=== PATIENT | female | born 1995 | race Caucasian/White ===

== ENCOUNTER 2016-09-27 15:36 | Emergency (ER) | payer MEDICAID, OTHER ==
[~2016-09-27] VITALS: Ht 157.5 cm; Wt 79.0 kg
[~2016-09-27 15:36] MED LIST: ACET325T33 PO; CYCL-319 PO; HYDR-3498 PO; IBUP-1542 PO
[2016-09-27 15:38] VITALS: Ht 157.5 cm; Wt 79.0 kg
[2016-09-27] MEDS ORDERED: PRENAT PO (18:34)
--- NOTE | 2016-09-27 19:50 | ERD ---
ER Documentation Chief Complaint Date/Time DATE: 09/27/16 TIME: 19:46 Chief Complaint FACIAL RASH AFTER VOMITED X 2, 34 WEEKS HPI This is a 21-year-old female presenting to emergency department for facial rash and vomiting. Patient states earlier today she was eating a salad and soon after she started vomiting. Nonbloody, nonbilious emesis. Patient then states she developed pruritic rash to face. Denies wheezing, shortness of breath, difficulty breathing or chest pain. No diarrhea. Patient is currently 34 weeks with last menstrual period January 30, 2016. Patient states this is her first . Patient denies any vaginal bleeding however she states she has some pelvic cramping and pain. ROS All systems reviewed and are negative except as per history of present illness. Medications Home Meds Reported Medications Multivit/Min/Fol Ac/Iron/Pren* ( S*) 1 Tab Tab, 1 TAB PO DAILY, TAB 09/27/16 Discontinued Scripts Acetaminophen* (Tylenol*) 325 Mg Tablet, 2 TAB PO Q8 Y for PAIN AND/OR INFLAMMATION, #30 TAB Prov:RACHEL NEWBERRY MD 05/29/16 Hydrocodone Bit-Acetaminophen* ([place]*) 5-325 Mg Tab, 1 TAB PO Q6 Y for PAIN, # 20 TAB Prov:MAITE MENDOZA NP 01/14/16 Cyclobenzaprine Hcl* (Cyclobenzaprine Hcl*) 10 Mg Tablet, 10 MG PO TID, #15 TAB Prov:MAITE MENDOZA NP 01/14/16 Ibuprofen* (Motrin*) 600 Mg Tab, 600 MG PO Q6H Y for PAIN AND OR ELEVATED TEMP, #30 TAB Prov:MAITE MENDOZA NP 01/14/16 Allergies Allergies: Coded Allergies: No Known Allergy (Unverified , 09/27/16) PMhx/Soc Medical and Surgical Hx: pt denies Medical Hx History of Surgery: Yes (eye surgery) Anesthesia Reaction: No Hx Neurological Disorder: No Hx Respiratory Disorders: No Hx Cardiac Disorders: No Hx Psychiatric Problems: No Hx Alcohol Use: No Hx Substance Use: No Hx Tobacco Use: No Smoking Status: Never smoker Physical Exam Vitals Vital Signs Date Time Temp Pulse Resp B/P Pulse Ox O2 Delivery O2 Flow Rate FiO2 4/22/17 15:38 98.1 99 18 100/60 99 Physical Exam Const: Alert, [id number] Head: Atraumatic Eyes: Normal Conjunctiva ENT: Normal External Ears, Nose and Mouth. Neck: Full range of motion..~ No meningismus. Resp: Clear to auscultation bilaterally Cardio: Regular rate and rhythm, no murmurs Abd: Soft, non tender, non distended. Normal bowel sounds Skin: Erythematous patches to face and neck. No crusting or scaling. No vesicles. No abscess. Back: No midline or flank tenderness Ext: No cyanosis, or edema Neur: Awake and alert Psych: Normal Mood and Affect Procedures/MDM MDM: This is a 21-year-old female presenting to emergency department for facial rash and vomiting after eating today. Patient states she vomited twice nonbloody nonbilious emesis. Patient is currently 34 weeks with last menstrual period January 30, 2016. Patient does state that she has some pelvic pain and cramping at times. She states that she has had this for several weeks. No active vomiting on the ED. Patient was sent to labor and delivery for evaluation. Departure Diagnosis: Primary Impression: Rash Additional Impression: Weeks of gestation: 34 weeks Qualified Code: Z3A.34 - 34 weeks gestation of Condition: Stable FIDELINA JENKINS NP Sep 27, 2016 19:50
== END 2016-09-27 20:55 | disposition left against medical advice (07) ==
LOC: FTE 15:36
DX: O99.89 Other specified diseases and conditions complicating pregnancy, childbirth and the puerperium (principal); R21 Rash and other nonspecific skin eruption; Z3A.34 34 weeks gestation of pregnancy
CPT/HCPCS: 99282

== ENCOUNTER 2016-09-27 18:05 | Outpatient (CLI) | payer OTHER ==
[~2016-09-27] VITALS: Ht 157.5 cm; Wt 78.3 kg
[2016-09-27 18:28] VITALS: BP 101/62; PULSE 91; RESP 18; Ht 157.5 cm; Wt 78.3 kg
[2016-09-27] MEDS ORDERED: PRENAT PO (18:34)
--- NOTE | 2016-09-27 18:53 | PN ---
Date/Time of Note Date/Time of Note DATE: 09/27/16 TIME: 18:47 OB Subjective Subjective Subjective Patient is 1 para 0 at 34 weeks of gestation who presents with a facial rash which appeared shortly after one episode of vomiting, she reports no itching Patient reports no fever, no shortness of breath no chest pain, no abdominal pain, no diarrhea Patient reports a similar episode earlier in the with a facial rash which spontaneously cleared in a couple of days Patient does report a history of facial acne Patient has had no problems during her care OB Objective Objective Objective 34 weeks of gestation with a facial rash heart rate category 1 [place] none HEENT: WNL Heart: Rhythm Normal Lungs: Clear Abdomen: WNL Extremities: Normal Accelerations: Accelerations Present Decelerations: No Decelerations Varibility: Moderate Contractions on Admission: None OB Assessment/Plan Other Assessment: 34 weeks of gestation with facial rash Patient is afebrile and stable NST reactive Other plan: Patient is clear from the obstetrical standpoint We will send the patient back on to the ER for further evaluation of a facial rash Patient should follow-up with Dr. Payton in 2-3 days MIYA OMALLEY MD Sep 27, 2016 18:52
== END 2016-09-27 19:03 | disposition home or self-care (01) ==
LOC: OBT 18:05 → L-D 18:06 → OBT 19:03
PROVIDERS: ATTEND Obstetrics & Gynecology
DX: O32.3XX0 Maternal care for face, brow and chin presentation, not applicable or unspecified (principal); Z3A.34 34 weeks gestation of pregnancy
CPT/HCPCS: G0463

== ENCOUNTER 2016-10-28 21:13 | Outpatient (CLI) | payer OTHER ==
[~2016-10-28] VITALS: Ht 157.5 cm; Wt 79.3 kg
[~2016-10-28 21:13] MED LIST changes: -ACET325T33 PO; -CYCL-319 PO; -HYDR-3498 PO; -IBUP-1542 PO; +PRENAT PO
[2016-10-28 21:17] VITALS: Ht 157.5 cm; Wt 79.3 kg
[2016-10-28 21:37] VITALS: BP 108/63; PULSE 105; RESP 18
--- NOTE | 2016-10-29 00:12 | RADRPT ---
PROCEDURE: Obstetrical ultrasound greater than 14 weeks CLINICAL INDICATION: Active labor. Estimated weight TECHNIQUE: Real time sonographic imaging of the gravid uterus is performed transabdominally and mu ltiple static deleon scale and Doppler images are submitted for review as are measurements. The image s are reviewed on the PACS. COMPARISON: No relevant exams are available FINDINGS: There is a single living intrauterine gestation in cephalic presentation. The heart beat is estimated at 131 bpm. The measurements are as follows: BPD:9.43 cm HC:33.48 cm AC:34.25 cm FL:7.29 cm Estimated gestational age is 38 weeks. The estimated date of delivery is 11/11/2016. The estimated weight is 3372 grams. Placenta is posterior and grade2. There is no evidence of placenta previa or abruption. RPTAT:HJJR IMPRESSION: 1. Single viable intrauterine gestation in cephalic presentation estimated at 38 weeks with the shaw mated date of delivery 11/11/2016. 2. Estimated weight 3372 g (7 pounds 7 ounces). Physician Joey Date Time Electronically viewed and signed by Physician Joey on 10/29/2016 00:12 JR/
--- NOTE | 2016-10-29 00:14 | RADRPT ---
PROCEDURE: US OB. CLINICAL INDICATION: Active labor TECHNIQUE: Pelvic ultrasound performed for biophysical profile. COMPARISON: 10/28/2016 FINDINGS: Single intrauterine gestation present with heart rate at 143 beats per minute. Presentation is ceph alic. Placenta is posterior, grade II. Biophysical profile score is 8/8 (breathing=2, movement=2, tone =2, fluid volume=2). Amniotic fluid volume is within normal limits, with SHRUTHI = 15.47 cm. RPTAT:HJJR IMPRESSION: Biophysical profile score 8/8. Physician Joey Date Time Electronically viewed and signed by Physician Joey on 10/29/2016 00:13 JR/
--- NOTE | 2016-10-29 01:05 | QN ---
Documentation Comment OB TRIAGE NOTE 21 y/o JOHN 11/06/2016 with c/o pelvic pressure. Patient denies any leakage of fluid or vaginal bleeding. Afebrile VSS Abdomen soft NT NST Category I OB ultrasound normal Cervix Fingertip Stable D/C home Follow up in clinic on 10/30/2016. CLARISSE HENRIQUEZ MD October 29, 2016 01:04
--- NOTE | 2016-10-29 01:20 | TRIAGE ---
OB Triage Datetime Report Generated by CPN: 10/29/2016 01:20 Datetime: 10/29/2016 00:56 Labor Evaluation Frequency: 2-5 Monitor Mode: External Quality: Mild Pattern: Normal: <= 5 Contractions in 10 Minutes Resting Tone [place]: Relaxed Heart Rate FHR Baseline Rate: 115 Monitor Mode: External US Variability: Moderate 6-25 bpm Accelerations: 15X15 Decelerations: None Category: Category I Datetime: 10/29/2016 00:16 Labor Evaluation Frequency: 7-8 Monitor Mode: External Duration (sec)2399: 60-90 Quality: Mild Pattern: Normal: <= 5 Contractions in 10 Minutes Resting Tone [place]: Relaxed Heart Rate FHR Baseline Rate: 125 Monitor Mode: External US Variability: Moderate 6-25 bpm Accelerations: 15X15 Decelerations: None Category: Category I Datetime: 10/28/2016 23:16 Monitor Mode: External Quality: Mild Pattern: Normal: <= 5 Contractions in 10 Minutes Resting Tone [place]: Relaxed Heart Rate FHR Baseline Rate: 130 Monitor Mode: External US FHR Baseline Changes: No Baseline Change Variability: Moderate 6-25 bpm Accelerations: 15X15 Decelerations: None Datetime: 10/28/2016 22:34 Stage of : OB Triage Monitor Mode: External Quality: Mild Pattern: Normal: <= 5 Contractions in 10 Minutes Resting Tone [place]: Relaxed Heart Rate FHR Baseline Rate: 140 Monitor Mode: External US FHR Baseline Changes: No Baseline Change Variability: Moderate 6-25 bpm Accelerations: 15X15 Decelerations: None Category: Category I Datetime: 10/28/2016 22:25 Time of Arrival: 10/28/2016 21:11 EGA: 38.5 Arrived By: Wheelchair Arrived From: Home Chief Complaint: w/ c/o vag pain and pressure since 1530 and DFM today Movement: Decreased Contractions: Denies/Absent Rupture of Membranes: Denies Vaginal Bleeding: None Vaginal Discharge: Denies Recent Sexual Intercouse: Denies Abdominal Trauma: Not Applicable Patient Complaints: Other Time Provider Notified: 10/28/2016 21:16 Provider Notified: Dr Centeno Initial Plan: EFM Datetime: 10/28/2016 22:19 Vaginal Exam Dilatation (cms): 0.5 Effacement (%): 50 Station: -3 Cervix, Position: Posterior Datetime: 10/28/2016 21:24 Membrane Status: Intact Datetime: 10/28/2016 21:23 Maternal Assessment Level of Consciousness: Fully Conscious Headache: Denies Blurred Vision: No Respiratory Effort: Unlabored; Regular Rhythm; Equal Expansion Nausea/Vomiting: Denies RUQ Epigastric Pain: Denies Monitor Mode: External Monitor Mode: External US Comments: FHT 155 Datetime: 09/27/2016 18:32 Stage of : OB Triage Assessment Type: Admission Assessment Maternal Assessment Level of Consciousness: Fully Conscious DTR's/Clonus: DTRs 2+; No Clonus Headache: Denies Blurred Vision: No Respiratory Effort: Unlabored; Regular Rhythm; Equal Expansion Breath Sounds, Left: Clear and Equal Breath Sounds, Right: Clear and Equal Nausea/Vomiting: Denies RUQ Epigastric Pain: Denies Facial Edema: None Temperature Route: Axillary Fall Risk Assessment History of Falling: (0) No Secondary Diagnosis: (0) No Ambulatory Aid: (0) Bedrest/Nurse Assist IV Therapy: (0) No Gait: (0) Normal/Bedrest/Immobile Mental Status: (0) Oriented to Own Ability Fall Score: 0 Fall Risk Score Definition: No Risk: No action required Datetime: 09/27/2016 18:31 Time of Arrival: 09/27/2016 18:05 EGA: 34.2 Arrived By: Wheelchair Arrived From: Emergency Dept Chief Complaint: complaints of facial rash after eating and vomiting. blood spot in upper left eye . cleared in ER and sent to OB triage for evaluation. Movement: Present Contractions: Denies/Absent Rupture of Membranes: Denies Vaginal Bleeding: None Vaginal Discharge: Denies Recent Sexual Intercouse: Denies Abdominal Trauma: Not Applicable Patient Complaints: Other Time Provider Notified: 09/27/2016 18:40 Provider Notified: MD Savannah
== END 2016-10-29 01:06 | disposition home or self-care (01) ==
LOC: OBT 21:13 → L-D 21:14 → OBT 10-29 01:06
PROVIDERS: ATTEND Obstetrics & Gynecology
DX: O26.893 Other specified pregnancy related conditions, third trimester (principal); R10.2 Pelvic and perineal pain; Z3A.34 34 weeks gestation of pregnancy
CPT/HCPCS: 76815; 76818; Z7500; G0463

== ENCOUNTER 2016-11-04 13:41 | Outpatient (CLI) | payer OTHER ==
[~2016-11-04] VITALS: Ht 157.5 cm; Wt 79.9 kg
[2016-11-04 14:20] VITALS: Ht 157.5 cm; Wt 79.9 kg
[2016-11-04 14:21] VITALS: BP 95/62
--- NOTE | 2016-11-04 15:45 | RADRPT ---
PROCEDURE: US OB. CLINICAL INDICATION: Size and dates , labor pain TECHNIQUE: Multiple sonographic images of the pelvis and gravid uterus were obtained. The images were reviewed on a PACS workstation. COMPARISON: No prior studies are available for comparison. FINDINGS: There is a single viable intrauterine gestation. Cardiac activity is present with 139 beats per min [place]. There is a vertex presentation. The placenta is fundal left. There is no evidence for an abruption or placenta previa. There is a normal amount of amniotic fluid with an HSRUTHI = 14.6 cm. Measurements were made in order to determine age. The results are as follows: BPD =9.7 cm HC =33.3 cm AC =36.6 cm FL =7.6 cm Estimated gestational age of approximately 38 weeks and 5 days based on ultrasound measurements. Clinical age: 39 weeks and 6 days. The estimated date of delivery is 11/13/16, based on ultrasound measurements. The EFW = 3875 g, 73%, based on LMP age. RPTAT: AA IMPRESSION: Single viable intrauterine gestation of approximately 38 weeks and 5 days based on ultrasound measu rements. .Sergio Kowalski MD, MD Date Time Electronically viewed and signed by .Sergio Kowalski MD, on 11/04/2016 15:44 .S/
--- NOTE | 2016-11-04 15:47 | RADRPT ---
PROCEDURE: US OB biophysical profile. CLINICAL INDICATION: decreased movements, labor pain TECHNIQUE: Multiple sonographic images of the pelvis were obtained. The images were reviewed on a PACS workstation. COMPARISON: 10/28/16 FINDINGS: There is a single viable intrauterine gestation. Cardiac activity is present with 140 beats per min [place]. There is a vertex presentation. The placenta is fundal left. There is no evidence for an abruption or placenta previa. There is a normal amount of amniotic fluid with an SHRUTHI = 14.6 cm. Biophysical profile: movement 2/2 tone 2/2. breathing 2/2 SHRUTHI 2/2 Total 01/13 RPTAT: AA . IMPRESSION: Normal biophysical profile. . .Sergio Kowalski MD, Date Time Electronically viewed and signed by .Sergio Kowalski MD, on 11/04/2016 15:47 .S/
--- NOTE | 2016-11-04 18:06 | TRIAGE ---
OB Triage Datetime Report Generated by CPN: 11/04/2016 18:05 Datetime: 11/04/2016 16:58 Vaginal Exam Dilatation (cms): 1.0 Effacement (%): 70 Station: -2 Exam By: S. SHYANNE Datetime: 11/04/2016 16:15 Stage of : OB Triage Labor Evaluation Frequency: 1-6 Monitor Mode: External Duration (sec)2399: 30-60 Pattern: Normal: <= 5 Contractions in 10 Minutes Resting Tone [place]: Relaxed Heart Rate FHR Baseline Rate: 135 Monitor Mode: External US Variability: Moderate 6-25 bpm Accelerations: 15X15 Decelerations: None Category: Category I Pain Assessment Pain Scale: 5 Pain Presence: Intermittent Pain Type: Cramping; Contraction Pain Location: Abdomen Pain Relief Measures: Comfort Measures Datetime: 11/04/2016 15:25 Stage of : OB Triage Labor Evaluation Frequency: 1-5 Monitor Mode: External Duration (sec)2399: 30-60 Pattern: Normal: <= 5 Contractions in 10 Minutes Resting Tone [place]: Relaxed Heart Rate FHR Baseline Rate: 135 Monitor Mode: External US Variability: Moderate 6-25 bpm Accelerations: 15X15 Decelerations: None Category: Category I Datetime: 11/04/2016 14:28 Vaginal Exam Dilatation (cms): 1.0 Effacement (%): 70 Station: -2 Exam By: BonifacioKristofer KIMBLE Datetime: 11/04/2016 14:25 Stage of : OB Triage Assessment Type: Triage Maternal Assessment Level of Consciousness: Fully Conscious DTR's/Clonus: DTRs 2+; No Clonus Headache: Denies Blurred Vision: No Respiratory Effort: Unlabored; Regular Rhythm; Equal Expansion Breath Sounds, Left: Clear and Equal Breath Sounds, Right: Clear and Equal Nausea/Vomiting: Denies RUQ Epigastric Pain: Denies Lower Extremities Edema: None Degree: None Upper Extremities Edema: None Degree: None Facial Edema: None Temperature Route: Oral Fall Risk Assessment History of Falling: (0) No Secondary Diagnosis: (0) No Ambulatory Aid: (0) Bedrest/Nurse Assist IV Therapy: (0) No Gait: (0) Normal/Bedrest/Immobile Mental Status: (0) Oriented to Own Ability Fall Score: 0 Fall Risk Score Definition: No Risk: No action required Monitor Mode: External Heart Rate FHR Baseline Rate: 145 Monitor Mode: External US Variability: Moderate 6-25 bpm Accelerations: 15X15 Decelerations: None Category: Category I Pain Assessment Pain Scale: 0 Pain Presence: None/Denies Pain Type: N/A Datetime: 11/04/2016 14:23 Time of Arrival: 11/04/2016 13:37 EGA: 39.5 Arrived By: Ambulatory Arrived From: Home Chief Complaint: C/O LOST MUCUS PLUG Movement: Present Rupture of Membranes: Denies Vaginal Discharge: Denies Recent Sexual Intercouse: Denies Abdominal Trauma: Not Applicable Patient Complaints: Other Additional Patient Complaints: EFMX2,CALL MD Time Provider Notified: 11/04/2016 14:50 Provider Notified: DR. WILL Initial Plan: EVALUATE FOR 2 HOURS IF NOT CERVICAL CHANGE D/C- IF CERVICAL CHANGE ADMIT TO LABOR A ND DELIVERY, ORDERS FOR BPP/AFR, EFW RECIEVED Datetime: 10/28/2016 22:25 EGA: 38.5 Datetime: 09/27/2016 18:32 Fall Score: 0 Fall Risk Score Definition: No Risk: No action required Datetime: 09/27/2016 18:31 EGA: 34.2
--- NOTE | 2016-11-04 18:09 | QN ---
Documentation Comment 21 years old female 1 para 0 EDC November 06, 2016 at 39 weeks and 5 7 presented in triage unit with a complaint of labor contraction patient kept under observation for 2 hours with IV hydration there was no cervical changes heart rate category 1 patient discharged home with labor instructions recommended return to the hospital when contractions are stronger. JUMANA WILL MD November 04, 2016 18:09
== END 2016-11-04 18:03 | disposition home or self-care (01) ==
LOC: OBT 13:41 → L-D 13:42 → OBT 18:03
PROVIDERS: ATTEND Obstetrics & Gynecology
DX: O47.1 False labor at or after 37 completed weeks of gestation (principal); Z3A.39 39 weeks gestation of pregnancy
CPT/HCPCS: 76816; 76818; Z7500; G0463

== ENCOUNTER 2016-11-08 03:29 | Inpatient (IN) | payer OTHER ==
[~2016-11-08] VITALS: Ht 157.5 cm; Wt 81.2 kg
[2016-11-08 03:56] VITALS: BP 109/68; PULSE 92; RESP 18; Ht 157.5 cm; Wt 81.2 kg
[2016-11-08] MEDS ORDERED: OXYTOCIN 30 UNITS/LR 500 ML IV PRN (05:00)
[2016-11-08] MEDS ORDERED: METHYLERGONOVINE 0.2 MG INJ IM PRN (05:00)
[2016-11-08] MEDS ORDERED: IBUPROFEN 600 MG TAB PO PRN (05:00)
[2016-11-08] MEDS ORDERED: BUTORPHANOL 2 MG INJ IV PRN (05:00)
[2016-11-08] MEDS ORDERED: CARBOPROST 250 MCG INJ IM PRN (05:00)
[2016-11-08] MEDS ORDERED: MISOPROSTOL 200 MCG TAB PR PRN (05:00)
[2016-11-08] MEDS ORDERED: OXYTOCIN 30 UNITS/LR 500 ML IV SCH ×2 (05:00)
[2016-11-08] MEDS ORDERED: LIDOCAINE 1% (MPF) 30 ML INJ INJ PRN (05:00)
--- NOTE | 2016-11-08 05:03 | TRIAGE ---
OB Triage Datetime Report Generated by CPN: 11/08/2016 05:02 Datetime: 11/08/2016 04:30 Stage of : OB Triage Datetime: 11/08/2016 04:12 Stage of : OB Triage Labor Evaluation Frequency: 2-5 Monitor Mode: External Duration (sec)2399: 60-90 Quality: Moderate Pattern: Normal: <= 5 Contractions in 10 Minutes Resting Tone [place]: Relaxed Heart Rate FHR Baseline Rate: 130 Monitor Mode: External US FHR Baseline Changes: No Baseline Change Variability: Moderate 6-25 bpm Accelerations: 15X15 Decelerations: Variable Category: Category II Vaginal Exam Dilatation (cms): 2.0 Effacement (%): 80 Station: -2 Exam By: Denia Jamison Membrane Status: Bulging Amniotic Fluid Amount: None Vaginal Bleeding: Small Cervix, Consistency: Soft Cervix, Position: Posterior Presentation 'A': Cephalic Datetime: 11/08/2016 03:41 Monitor Mode: External Contraction Comments: [place] applied Heart Rate FHR Baseline Rate: 130 Monitor Mode: External US Comments: EFM applied Datetime: 11/08/2016 03:40 Time of Arrival: 11/08/2016 03:24 EGA: 40.2 Arrived By: Wheelchair Arrived From: Home Chief Complaint: Vaginal bleeding _ UCs since 0305 Movement: Present Contractions: Irregular Time Contractions Began: 11/08/2016 03:05 Rupture of Membranes: Denies Vaginal Bleeding: Moderate Vaginal Discharge: Present Abdominal Trauma: Not Applicable Patient Complaints: Contractions; Cramping; Back Pain Time Provider Notified: 11/08/2016 04:30 Provider Notified: Dr Davis Initial Plan: SVE, EFM Datetime: 11/04/2016 14:25 Fall Risk Assessment Fall Score: 0 Fall Risk Score Definition: No Risk: No action required Datetime: 11/04/2016 14:23 EGA: 39.5 Datetime: 10/28/2016 22:25 EGA: 38.5 Datetime: 09/27/2016 18:32 Fall Risk Assessment Fall Score: 0 Fall Risk Score Definition: No Risk: No action required Datetime: 09/27/2016 18:31 EGA: 34.2
[2016-11-08] MEDS: LACTATED RINGER'S 1,000 ML IV SCH ×3 (05:26→15:49)
[2016-11-08] MEDS ORDERED: LACTATED RINGER'S 1,000 ML IV PRN (06:00)
[2016-11-08 06:02] LABS: ADD SCAN DIFF NO
[2016-11-08 06:10] LABS: BASOPHILS % 0.3 % (0.0-2.0); EOSINOPHILS # 0.1 10^3/ul (0.0-0.5); EOSINOPHILS % 0.8 % (0.0-7.0); HEMATOCRIT 38.7 % (37.0-47.0); HEMOGLOBIN 12.8 g/dl (12.0-16.0); LYMPHOCYTES % 25.6 % (15.0-51.0); MEAN CORPUSCULAR HGB CONC 33.1 g/dl (32.0-37.0); MEAN CORPUSCULAR VOLUME 87.6 fl (82.0-101.0); MEAN PLATELET VOLUME 9.9 fl (7.4-10.4); MONOCYTE # 0.8 10^3/ul (0.3-0.9); MONOCYTES % 10.7 % (0.0-11.0); NEUTROPHIL # 4.9 10^3/ul (1.6-7.5); NEUTROPHILS % 62.2 % (39.0-77.0); PLATELET COUNT 304 10^3/UL (140-415); RED BLOOD COUNT 4.42 10^6/ul (4.20-5.40); RED CELL DISTRIBUTION WIDTH 13.1 % (11.5-14.5); WHITE BLOOD COUNT 7.8 10^3/ul (4.8-10.8)
[2016-11-08 06:29] LABS: INR 0.93; PARTIAL THROMBOPLASTIN TIME 28.5 Sec (25.0-35.0); PROTIME 12.5 Sec (12.2-14.2)
[2016-11-08] MEDS ORDERED: FENTAnyl 2MCG/ML-ROPIV 0.2% 100 ML ONE (16:22)
[2016-11-08] MEDS ORDERED: ONDANSETRON 4 MG INJ IV PRN (17:00)
[2016-11-08] MEDS ORDERED: NALOXONE (0.4 MG/ML) INJ IV PRN (17:00)
[2016-11-08] MEDS ORDERED: FENTAnyl 2MCG/ML-ROPIV 0.2% 100 ML BAG EPI SCH (17:00)
[2016-11-08] MEDS ORDERED: HYDROmorphONE 1 MG/ML SYG IV PRN ×2 (17:00)
[2016-11-08] MEDS ORDERED: HYDROCODONE/APAP (5/325) TAB PO PRN (17:00)
[2016-11-08] MEDS ORDERED: DIPHENHYDRAMINE 50 MG INJ IV PRN (17:00)
[2016-11-08] MEDS ORDERED: KETOROLAC 30 MG INJ IV PRN (17:00)
[2016-11-09] MEDS: LACTATED RINGER'S 1,000 ML IV SCH (00:36)
--- NOTE | 2016-11-09 05:21 | LDN ---
Date/Time of Note Date/Time of Note DATE: 11/09/16 TIME: 05:16 Delivery Summary Pt pushed under epidural anesthesia to a liveborn vigorous male infant with Apgars of 8/9, Weight of 3330g. Easy delivery of the head from LOP, followed by reduction of loose nuchal cord x1. The anterior and posterior shoulders then delivered without difficulty followed by the remainder of the body. The was placed on the mother's abdomen, nose and mouth suctioned as standard Oxytocin was administered via IV. After >1 min delay, the cord was doubly clamped and cut by FOB. Cord blood was collected. An intact 3VC placenta then spontaneously delivered shortly following delivery of the . Fundal massage revealed firm fundus. Inspection of the vagina and perineum revealed bilateral labial lacerations and a 1st degree perineal laceration, all of which were repaired with 3-0 Vicryl in the usual fashion. A rectal exam following repair did not reveal suture or any defects in the rectal mucosa. Mother and infant recovering well in LDR. Weeks of Gestation 40+3 Placenta Delivered: Spontaneously Meconium: none Episiotomy: No Perineal laceration: 1 Laceration repair: yes Anesthesia type: Epidural Estimated blood loss: 300 Sponge & Needle done & correct: Yes All needle counts correct: Yes Any foreign bodies felt in the: No Problems: Delivery Information Sex Sex: male Apgars 1 Minute: 8 5 Minute: 9 Suctioning Nose & mouth suctioned at don: No Delee suction performed: No Umbilical Cord Umbilical cord with: 3 Vessels Cord presentations: nuchal cord Nuchal cord present X: 1 Cord Blood was obtained: Yes Mother & Baby Disposition Disposition Mom & Baby to Maternity; Good: Yes Baby to NICU: No SHANNAN GANDHI MD Nov 09, 2016 05:21
[2016-11-09] MEDS ORDERED: LANOLIN 7 GM TUBE TOP PRN (05:30)
[2016-11-09] MEDS ORDERED: BENZOCAINE 20% 56 ML SPRAY TOP PRN (05:30)
[2016-11-09] MEDS ORDERED: DIPHENHYDRAMINE 50 MG INJ IV PRN (05:30)
[2016-11-09] MEDS ORDERED: METHYLERGONOVINE 0.2 MG INJ IM PRN (05:30)
[2016-11-09] MEDS ORDERED: ACETAMINOPHEN 325 MG TAB PO PRN (05:30)
[2016-11-09] MEDS ORDERED: MISOPROSTOL 200 MCG TAB PR PRN (05:30)
[2016-11-09] MEDS ORDERED: CARBOPROST 250 MCG INJ IM PRN (05:30)
[2016-11-09] MEDS ORDERED: ONDANSETRON 4 MG INJ IV PRN (05:30)
[2016-11-09] MEDS ORDERED: DIBUCAINE 1% 30 GM OINT PR PRN (05:30)
[2016-11-09] MEDS ORDERED: OXYTOCIN 30 UNITS/LR 500 ML IV PRN (05:30)
[2016-11-09] MEDS: IBUPROFEN 600 MG TAB PO SCH ×3 (07:45→17:50)
[2016-11-09 10:04] VITALS: BP 99/54; PULSE 79; RESP 16
[2016-11-09] MEDS: LACTATED RINGER'S 1,000 ML IV* SCH ×3 (10:16→21:10)
[2016-11-09 16:30] VITALS: BP 118/58; PULSE 79; RESP 19
[2016-11-09 20:30] VITALS: BP 98/65; PULSE 81; RESP 18
[2016-11-10] MEDS: IBUPROFEN 600 MG TAB PO SCH ×5 (00:25→23:36)
[2016-11-10] MEDS: LACTATED RINGER'S 1,000 ML IV* SCH (01:10)
[2016-11-10 04:00] VITALS: BP 98/57; PULSE 75; RESP 19
[2016-11-10 08:38] LABS: ADD SCAN DIFF NO
[2016-11-10 08:45] VITALS: BP 102/64; PULSE 94; RESP 18
[2016-11-10 09:00] LABS: BASOPHILS % 0.3 % (0.0-2.0); EOSINOPHILS # 0.1 10^3/ul (0.0-0.5); EOSINOPHILS % 0.6 % (0.0-7.0); HEMATOCRIT 35.8 % (37.0-47.0); HEMOGLOBIN 11.7 g/dl (12.0-16.0); LYMPHOCYTES # 2.4 10^3/ul (0.8-2.9); LYMPHOCYTES % 20.1 % (15.0-51.0); MEAN CORPUSCULAR HEMOGLOBIN 29.2 pg (29.0-33.0); MEAN CORPUSCULAR HGB CONC 32.7 g/dl (32.0-37.0); MEAN CORPUSCULAR VOLUME 89.3 fl (82.0-101.0); MEAN PLATELET VOLUME 10.3 fl (7.4-10.4); MONOCYTE # 0.6 10^3/ul (0.3-0.9); MONOCYTES % 5.4 % (0.0-11.0); NEUTROPHIL # 8.7 10^3/ul (1.6-7.5); NEUTROPHILS % 73.1 % (39.0-77.0); PLATELET COUNT 285 10^3/UL (140-415); RED BLOOD COUNT 4.01 10^6/ul (4.20-5.40); RED CELL DISTRIBUTION WIDTH 13.2 % (11.5-14.5); WHITE BLOOD COUNT 11.9 10^3/ul (4.8-10.8)
--- NOTE | 2016-11-10 09:13 | PN ---
Date/Time of Note Date/Time of Note DATE: 11/10/16 TIME: 09:12 OB Subjective Subjective Subjective Post normal vaginal delivery day 1 Afebrile vital signs stable abdomen soft uterus firm lochia moderate extremities negative ambulation encouraged Laboratory Tests Test 11/10/16 06:43 White Blood Count 11.910^3/ul Red Blood Count 4.0110^6/ul Hemoglobin 11.7g/dl Hematocrit 35.8% Mean Corpuscular Volume 89.3fl Mean Corpuscular Hemoglobin 29.2pg Mean Corpuscular Hemoglobin Concent 32.7g/dl Red Cell Distribution Width 13.2% Platelet Count 77149^3/UL Mean Platelet Volume 10.3fl Neutrophils % 73.1% Lymphocytes % 20.1% Monocytes % 5.4% Eosinophils % 0.6% Basophils % 0.3% Nucleated Red Blood Cells % 0.0/100WBC Neutrophils # 8.710^3/ul Lymphocytes # 2.410^3/ul Monocytes # 0.610^3/ul Eosinophils # 0.110^3/ul Basophils # 0.010^3/ul Nucleated Red Blood Cells # 0.010^3/ul Current Medications Medications (Trade) Dose Ordered Sig/Amador Route PRN Reason Start Time Stop Time Status Last Admin Dose Admin Lactated Ringer's (Lr) 1,000 ml @ 125 mls/hr Q8H IV 11/08/16 04:37 11/09/16 05:24 DC 11/09/16 00:36 Butorphanol Tartrate (Stadol) 2 mg Q2H PRN IV PAIN 11/08/16 05:00 11/09/16 05:24 DC 11/08/16 12:38 Lidocaine 30 ml 30 ml ONCE PRN INJ EPISIOTOMY/TEARING 11/08/16 05:00 11/09/16 05:24 DC Oxytocin/Lactated Ringer's 500 ml @ 125 mls/hr ONCE -MAY REPEAT X1 IV 11/08/16 05:00 11/09/16 05:24 DC 11/09/16 04:44 Oxytocin/Lactated Ringer's 500 ml @ 125 mls/hr ONCE IV 11/08/16 05:00 11/09/16 05:24 DC Ibuprofen 600 mg 600 mg ONCE PRN PO Mild Pain (Pain Score 1-3) 11/08/16 05:00 11/09/16 05:24 DC Lactated Ringer's 1,000 ml @ 2,000 mls/hr Q30M PRN IV PRE-EPIDURAL BOLUS 11/08/16 06:00 11/09/16 05:24 DC 11/08/16 17:33 Oxytocin/Lactated Ringer's 500 ml @ 0 mls/hr ONCE PRN IV For Hemorrhage Management 11/08/16 05:00 11/09/16 05:24 DC 11/08/16 12:37 Methylergonovine Maleate (Methergine) 0.2 mg ONCE PRN IM VAGINAL BLEEDING 11/08/16 05:00 11/09/16 05:24 DC Carboprost Tromethamine (Hemabate) 250 mcg ONCE PRN IM VAGINAL BLEEDING 11/08/16 05:00 11/09/16 05:24 DC Misoprostol 1000 mcg 1,000 mcg ONCE PRN [place] VAGINAL BLEEDING 11/08/16 05:00 11/09/16 05:24 DC Fentanyl/ Ropivacaine 100 ml @ STK-MED ONCE .ROUTE 11/08/16 16:22 11/08/16 16:23 DC Hydromorphone HCl (Dilaudid) 0.2 mg Q2H PRN IV PAIN LEVEL 1-5 11/08/16 17:00 11/09/16 05:24 DC Hydromorphone HCl (Dilaudid) 0.4 mg Q2H PRN IV PAIN LEVEL 6-10 11/08/16 17:00 11/09/16 05:24 DC Ketorolac Tromethamine (Toradol) 30 mg Q6H PRN IV PAIN LEVEL 6-10 11/08/16 17:00 11/09/16 05:24 DC Acetaminophen/ Hydrocodone Bitart (Neeses (5/325)) 1 tab Q4H PRN PO PAIN LEVEL 4-6 11/08/16 17:00 11/09/16 05:24 DC Diphenhydramine HCl (Benadryl) 25 mg Q4H PRN IV PRURITUS 11/08/16 17:00 11/09/16 05:24 DC Ondansetron HCl (Zofran Inj) 4 mg Q6H PRN IV NAUSEA AND/OR VOMITING 11/08/16 17:00 11/09/16 05:24 DC Naloxone HCl (Narcan) 0.2 mg Q2M PRN IV FOR RESP RATE 8 OR LESS 11/08/16 17:00 11/09/16 06:07 DC Fentanyl/ Ropivacaine 100 ml 100 ml EPIDURAL (PCEA) EPI 11/08/16 17:00 11/09/16 06:07 DC 11/09/16 00:37 Lactated Ringer's (Lr) 1,000 ml @ 125 mls/hr Q8H IV* 11/09/16 05:21 11/09/16 10:16 Ibuprofen (Motrin) 600 mg Q6 PO 11/09/16 06:00 11/10/16 06:13 Ondansetron HCl (Zofran Inj) 4 mg Q6H PRN IV NAUSEA AND/OR VOMITING 11/09/16 05:30 Diphenhydramine HCl (Benadryl) 25 mg Q6H PRN IV PRURITUS 11/09/16 05:30 Senna/Docusate Sodium (Senokot-S) 1 tab BID PRN PO CONSTIPATION 11/09/16 05:30 Benzocaine (Dermoplast [place]) 1 spray BEDSIDE MEDICATION PRN TOP HEMORRHOID/EPISIOTMY PAIN 11/09/16 05:30 11/09/16 10:17 Dibucaine (Nupercainal) 1 applic BEDSIDE MEDICATION PRN VT HEMORRHOID/EPISIOTMY PAIN 11/09/16 05:30 11/09/16 10:17 Lanolin (Zlk-S-Orpipk) 1 applic BEDSIDE MEDICATION PRN TOP BEDSIDE FOR AJ TO NIPPLES 11/09/16 05:30 11/09/16 10:17 Diphtheria/ Tetanus/Acell Pertussis (Adacel) 0.5 ml ONCE ONCE IM* 11/11/16 09:00 11/11/16 09:01 Acetaminophen 650 mg 650 mg Q4H PRN PO ELEVATED TEMPERATURE 11/09/16 05:30 Oxytocin/Lactated Ringer's 500 ml @ 0 mls/hr ONCE PRN IV For Hemorrhage Management 11/09/16 05:30 Methylergonovine Maleate (Methergine) 0.2 mg ONCE PRN IM VAGINAL BLEEDING 11/09/16 05:30 Carboprost Tromethamine (Hemabate) 250 mcg ONCE PRN IM VAGINAL BLEEDING 11/09/16 05:30 Misoprostol (Cytotec) 1,000 mcg ONCE PRN [place] VAGINAL BLEEDING 11/09/16 05:30 JUMANA WILL MD Nov 10, 2016 09:13
[2016-11-10 15:15] VITALS: BP 106/78; PULSE 89; RESP 18
[2016-11-10 20:00] VITALS: BP 101/71; PULSE 86; RESP 20
[2016-11-10] MEDS: SENNA/DOCUSATE NA (8.6MG/50MG) TAB PO PRN (21:47)
[2016-11-11 04:00] VITALS: BP 114/77; PULSE 74; RESP 20
[2016-11-11] MEDS: IBUPROFEN 600 MG TAB PO SCH ×2 (06:21→11:42)
[2016-11-11 07:20] VITALS: BP 107/72; PULSE 69; RESP 18
[2016-11-11] MEDS: SENNA/DOCUSATE NA (8.6MG/50MG) TAB PO PRN (08:50)
[2016-11-11] MEDS ORDERED: DIPHTH/TET/ACEL PERTUSS (ADULT) 0.5 ML VIAL IM* ONE (09:00)
--- NOTE | 2016-11-11 10:05 | PD.PPDC ---
MEDICAL DOCTOR MD Discharge Instruction Condition Patient Condition: Good Diet Diet: Resume Regular Diet Activity/Restrictions Activity: Normal Activity May Shower Wound/Drain Care Instructions Wound/Drain Care Instructions: Wash with soap and water Keep clean and dry Follow-up Follow-up with Physician: 2, Week/Weeks Return to clinic for [employer]PER Instructions: Fever greater than 101 Chills Worsening abdominal pain Excessive Vaginal Bleeding More than 2 pads per hour Unable to tolerate diet OB Instructions: Breast Tenderness Depression Blurried Vision Headache JUMANA WILL MD Nov 11, 2016 10:05
--- NOTE | 2016-11-11 10:09 | DS ---
Date/Time of Note Date/Time of Note DATE: 11/11/16 TIME: 10:06 Discharge Summary Admission/Discharge Info Admit Date/Time Nov 08, 2016 at 04:48 Discharge Date/Time November 11, 2016 at 1005 Final Diagnosis Term day 2 Procedures Normal vaginal delivery Hx of Present Illness Term Hospital Course Uneventful satisfactory Home Meds Reported Medications Multivit/Min/Fol Ac/Iron/Pren* ( S*) 1 Tab Tab, 1 TAB PO DAILY, TAB 09/27/16 Follow-up Plan Appointment clinic in 2 weeks for check Primary Care Provider Asiya Diaz Time spent on discharge: < 30 minutes JUMANA WILL MD Nov 11, 2016 10:09
== END 2016-11-11 16:47 | disposition home or self-care (01) | DRG 775 ==
LOC: OBT 03:29 → L-D 03:31 → OBT 04:46 → L-D 04:48 → PP1 11-09 09:49
PROVIDERS: ADMIT Obstetrics & Gynecology; ATTEND Obstetrics & Gynecology
PROC: 4A1HX4Z Monitoring of Products of Conception, Cardiac Electrical Activity, External Approach (ICD-10-PCS; 2016-11-08)
PROC: 10E0XZZ Delivery of Products of Conception, External Approach (ICD-10-PCS; principal; 2016-11-09)
DX: O48.0 Post-term pregnancy (principal); O76 Abnormality in fetal heart rate and rhythm complicating labor and delivery; O70.0 First degree perineal laceration during delivery; O69.81X0 Labor and delivery complicated by cord around neck, without compression, not applicable or unspecified; Z3A.40 40 weeks gestation of pregnancy; Z37.0 Single live birth
CPT/HCPCS: 62319; 85025; 85610; 85730; 86592; 86900; 86901; 90715; G0463; J0595; J2590; J3010; J7120

== ENCOUNTER 2019-02-21 21:25 | Emergency (ER) | payer MEDICAID, OTHER ==
[~2019-02-21] VITALS: Ht 157.5 cm; Wt 77.3 kg
[2019-02-21 21:27] VITALS: Ht 157.5 cm; Wt 77.3 kg
[2019-02-21] MEDS ORDERED: SOD CHLORIDE 0.9% 500 ML IV STA (23:22)
[2019-02-21] MEDS ORDERED: ACETAMINOPHEN 325 MG TAB PO ONE (23:30)
[2019-02-22 01:44] VITALS: BP 104/69; PULSE 100; RESP 18
== END 2019-02-22 02:10 | disposition home or self-care (01) ==
LOC: FTE 21:25
DX: O26.891 Other specified pregnancy related conditions, first trimester (principal); R10.2 Pelvic and perineal pain; Z3A.01 Less than 8 weeks gestation of pregnancy
CPT/HCPCS: 36415; 76801; 80053; 81003; 84702; 85025; 86900; 86901; 87086; 93005; J7040; Z7502; Z7610